=== PATIENT | male | born 1975 | race Two or more races ===

== ENCOUNTER 2024-03-20 11:46 | Inpatient (IN) | payer OTHER ==
[~2024-03-20] VITALS: Ht 160 cm; Wt 81.6 kg
[~2024-03-20 11:46] MED LIST: ADERAL
[2024-03-20] MEDS ORDERED: CLONAZEPAM1 MG PO (11:57)
[2024-03-20] MEDS ORDERED: CYMBALTA20 MG PO (11:58)
[2024-03-20] MEDS ORDERED: DIATRIZOATE MEGLUMINE, SODIUM 30 ML BOTTLE ONE (12:20)
[2024-03-20 13:18] LABS: HEMATOCRIT 43.7 % (39.0-48.0); MEAN CELL VOLUME 88.3 fL (80.0-100.00); MEAN CORPUSCULAR HEMOGLOBIN 30.4 pg (27.00-32.0); MEAN CORPUSCULAR HGB CONC 34.4 g/dl (32.0-36.0); RED BLOOD COUNT 4.95 M/uL (4.00-6.00); RED CELL DISTRIBUTION WIDTH 13.8 % (11.5-14.5)
[2024-03-20 13:21] LABS: PLATELET COUNT 96 K/uL (150-450)
[2024-03-20 14:25] LABS: CALCIUM 9.9 mg/dL (8.5-10.1); CREATININE SERUM 1.08 mg/dL (0.70-1.30); GFR 72.08; POTASSIUM 3.59 mEq/L (3.5-5.1)
[2024-03-20 17:28] LABS: URINE APPEARANCE Clear; URINE BILIRRUBIN Negative (NEGATIVE); URINE BLOOD Negative; URINE COLOR Yellow; URINE GLUCOSE Negative (NEGATIVE); URINE LEUKOCYTE Negative; URINE NITRATE Negative; URINE PROTEIN Trace (NEGATIVE); URINE UROBILINOGEN 0.2 E.U./dl
[2024-03-20 17:32] LABS: URINE BACTERIA 29.3 uL (0.0-1933); URINE EPITHELIAL CELLS 3.7 uL (0.0-38.8); URINE RBC 2.5 uL (0.0-20.8); URINE WBC 3.9 uL (0.0-23.2)
[2024-03-20 17:52] LABS: URINE CAST 0.44 uL (0.0-1.40); URINE KETONE 80 (NEGATIVE)
[2024-03-20] MEDS ORDERED: PANTOPRAZOLE SODIUM 40 MG/VIAL VIAL IV SCH (19:26)
[2024-03-20] MEDS ORDERED: ONDANSETRON HCL 4 MG in 0.9 % SODIUM CHLORIDE 50 ML IV PRN (19:30)
[2024-03-20] MEDS ORDERED: MORPHINE SULFATE 4 MG/ML CARTRIDGE IV ONE (19:30)
[2024-03-20] MEDS ORDERED: ACETAMINOPHEN 500 MG GEL..CAP PO PRN (19:30)
[2024-03-20] MEDS ORDERED: MORPHINE SULFATE 4 MG/ML CARTRIDGE IV PRN (19:30)
[2024-03-20] MEDS ORDERED: 0.9 % SODIUM CHLORIDE 1,000 ML IV SCH (19:45)
[2024-03-20] MEDS ORDERED: CIPROFLOXACIN IN 5 % DEXTROSE 400 MG/200 ML PIGGYBAG IV ONE (20:16)
[2024-03-20] MEDS ORDERED: METRONIDAZOLE/SODIUM CHLORIDE 500 MG/100 ML PIGGYBACK IV ONE (20:16)
[2024-03-20] MEDS ORDERED: METRONIDAZOLE/SODIUM CHLORIDE 100 ML IV SCH (21:00)
[2024-03-20] MEDS ORDERED: CIPROFLOXACIN IN 5 % DEXTROSE 200 ML IV SCH (21:00)
[2024-03-20 21:19] LABS: INR 1.04; PARTIAL THROMBOPLASTIN TIME 30.2 SECONDS (22.0-34.0); PROTHROMBIN TIME 11.3 SECONDS (9.0-11.5)
[2024-03-21] MEDS ORDERED: MORPHINE SULFATE 2 MG/ML CARTRIDGE IV SCH (02:00)
[2024-03-21 03:03] VITALS: BP 102/70; O2SAT 98
[2024-03-21 05:29] LABS: FECAL LEUKOCYTES POSITIVE (NEGATIVE)
[2024-03-21] MEDS ORDERED: Duloxetine HCl 30 MG CAPSULE.DR PO SCH (09:00)
[2024-03-21 09:12] VITALS: BP 110/60; O2SAT 98
[2024-03-21] MEDS ORDERED: LACTOBACILLUS ACIDOPHILUS 1 CAP CAP PO SCH (17:00)
[2024-03-21] MEDS ORDERED: CLONAZEPAM 1 MG TABLET PO SCH ×2 (17:00→21:00)
[2024-03-21 17:48] VITALS: BP 111/75; O2SAT 98
[2024-03-22] VITALS: BP 95/59; O2SAT 97
[2024-03-22 04:13] LABS: HEMATOCRIT 39.9 % (39.0-48.0); HEMOGLOBIN 13.6 g/dL (13-16.00); MEAN CELL VOLUME 87.7 fL (80.0-100.00); MEAN CORPUSCULAR HGB CONC 34.2 g/dl (32.0-36.0); RED BLOOD COUNT 4.54 M/uL (4.00-6.00); RED CELL DISTRIBUTION WIDTH 13.3 % (11.5-14.5)
[2024-03-22 04:22] LABS: PLATELET COUNT 104 K/uL (150-450)
[2024-03-22 04:38] LABS: BILIRUBIN TOTAL 0.57 mg/dL (0.3-1.2); CALCIUM 8.5 mg/dL (8.5-10.1); GFR 78.78; GLOBULINA 3.9 G/DL (2.4-3.5); MAGNESIUM 2.1 mg/dL (1.8-2.4); PHOSPHOROUS 3.1 mg/dL (2.5-4.9); POTASSIUM 3.96 mEq/L (3.5-5.1); TOTAL PROTEIN 6.9 gm/dL (6.4-8.2)
[2024-03-22 04:47] LABS: C-REACTIVE PROTEIN 5.94 MG/DL (0.00-0.29)
== END 2024-03-22 09:26 | disposition home or self-care (01) | DRG 392 ==
LOC: ER 11:48 → MEDI 20:03
PROVIDERS: Emergency Medicine; General Practice; Internal Medicine Infectious Disease; ADMIT Internal Medicine; ATTEND Internal Medicine
PROC: BW21YZZ Computerized Tomography (CT Scan) of Abdomen and Pelvis using Other Contrast (ICD-10-PCS; principal; 2024-03-20)
DX: K52.9 Noninfective gastroenteritis and colitis, unspecified (principal); R65.10 Systemic inflammatory response syndrome (SIRS) of non-infectious origin without acute organ dysfunction; Z88.0 Allergy status to penicillin